=== PATIENT | female | born 1950 | race Caucasian/White ===

== ENCOUNTER 2021-04-24 09:26 | Emergency (ER) | payer MEDICARE, OTHER ==
[~2021-04-24] VITALS: Ht 157.5 cm; Wt 56.7 kg
[~2021-04-24 09:26] MED LIST: AMLODIPINE BESYL5 MG PO; ATROVENT HFA12.9 GM; BACTRIM DS TAB1 EACH PO; CALCIUM500 MG PO; DILTIAZEM ER90 MG PO; HUMULIN R100 UNIT/2 SQ; LOPID600 MG PO; MAGNESIUM400 MG PO; METOPROLOL SUC100 MG PO; MILLIPRED5 MG PO; NADOLOL80 MG PO; PANTOPRAZOLE SO40 MG PO; PEPCID20 MG PO; PILOCARPINE HCL5 MG PO; PROGRAF1 MG PO; PROLIA60 MG/1 ML PO; PROMETHAZINE HC25 M1 PO; SERTRALINE HCL100 MG PO; URSODIOL300 MG PO; VASOTEC10 M1 PO; VITAMIN D5000 UNIT PO; ZOLOFT100 MG PO; ZYRTEC10 MG PO
== END 2021-04-24 10:13 | disposition home or self-care (01) ==
LOC: FSED 09:38
DX: U07.1 COVID-19 (principal); R05.9 Cough, unspecified; Z94.4 Liver transplant status; I10 Essential (primary) hypertension; E78.5 Hyperlipidemia, unspecified
CPT/HCPCS: 87400; 99282; U0002

== ENCOUNTER 2023-10-02 13:22 | Outpatient (RCR) | payer MEDICARE | END 2023-10-29 | LOC: RESP 13:22 | DX: J44.9 Chronic obstructive pulmonary disease, unspecified (principal) | CPT/HCPCS: 94626 ×6; G0238 ×6 ==

== ENCOUNTER 2023-10-30 13:36 | Outpatient (RCR) | payer MEDICARE | END 2023-11-29 | LOC: RESP 13:36 | DX: J44.9 Chronic obstructive pulmonary disease, unspecified (principal) | CPT/HCPCS: 94626 ×6; G0238 ×6 ==

== ENCOUNTER 2023-12-28 10:00 | Outpatient (RCR) | payer MEDICARE | END 2023-12-30 | LOC: RESP 10:00 | DX: J44.9 Chronic obstructive pulmonary disease, unspecified (principal) | CPT/HCPCS: 94626 ×7; G0238 ×7 ==

== ENCOUNTER 2024-01-18 09:52 | Outpatient (RCR) | payer MEDICARE | END 2024-01-29 | LOC: RESP 09:52 | DX: J44.9 Chronic obstructive pulmonary disease, unspecified (principal) | CPT/HCPCS: 94626 ×4; G0238 ×4 ==